=== PATIENT | male | born 1940 | race Caucasian/White ===

== ENCOUNTER → 2017-03-31 | Outpatient (CLI) | payer MEDICARE ==
[~2017-03-31] MED LIST: ASPIR 8181 MG PO; BROVANA15 MCG/2 M INH; COREG 12.5MG12.5 MG PO; DIAMOX 250 MG250 MG PO; ELIQUIS5 MG PO; FEOSOL325 MG PO; FERROUS SULFAT325 MG PO; GLUCOTROL XL 22.5 MG PO; IPRAT-ALBUT 0.5-3 ML INH; JANUVIA 100 MG100 MG PO; LASIX20 MG PO; LASIX40 MG PO; LEVAQUIN500 MG PO; NORVASC 5 MG TAB5 MG PO; PREDNISONE10 MG PO; PROTONIX40 MG PO; SOTALOL80 MG PO; ZOCOR10 MG PO
== END ==
LOC: HEART 5 10:50
DX: I65.29 Occlusion and stenosis of unspecified carotid artery (principal)

== ENCOUNTER 2017-04-19 14:37 | Emergency (ER) | payer MEDICARE ==
[~2017-04-19 14:37] MED LIST changes: -DIAMOX 250 MG250 MG PO; -FERROUS SULFAT325 MG PO; -GLUCOTROL XL 22.5 MG PO; -PREDNISONE10 MG PO; -PROTONIX40 MG PO; -SOTALOL80 MG PO
[2017-04-19 15:15] LABS: HEMOGLOBIN 8.9 gm/dl (14.0-17.5); RED BLOOD COUNT 3.13 M/UL (4.20-5.50); WHITE BLOOD COUNT 7.8 K/UL (4.5-11.0)
[2017-04-19 15:39] LABS: BUN/CREATININE RATIO 25 (0-10)
== END 2017-04-19 21:40 | disposition home or self-care (01) ==
LOC: ER1 14:37
PROVIDERS: Emergency Medicine
DX: I50.9 Heart failure, unspecified (principal); R09.02 Hypoxemia; Z79.82 Long term (current) use of aspirin; Z79.01 Long term (current) use of anticoagulants; Z79.899 Other long term (current) drug therapy
CPT/HCPCS: 36415; 71010; 80053; 82550; 82553; 83605; 83874; 83880; 84484; 85025; 85610; 85730; 87040; 93005; 96374; 96375; 99285; J1940; J2930

== ENCOUNTER 2017-04-23 08:22 | Inpatient (IN) | payer MEDICARE ==
[~2017-04-23] VITALS: Ht 177.8 cm; Wt 103.9 kg
[2017-04-23 09:04] LABS: HEMOGLOBIN 9.1 gm/dl (14.0-17.5); RED BLOOD COUNT 3.22 M/UL (4.20-5.50)
[2017-04-23] MEDS ORDERED: GLUCOTROL XL 22.5 MG PO (12:21)
[2017-04-23] MEDS ORDERED: SOTALOL80 MG PO (12:22)
[2017-04-24 03:33] LABS: HEMOGLOBIN 7.9 gm/dl (14.0-17.5)
[2017-04-24 03:40] LABS: RED BLOOD COUNT 2.82 M/UL (4.20-5.50); WHITE BLOOD COUNT 6.4 K/UL (4.5-11.0)
[2017-04-24 12:12] LABS: HEMOGLOBIN 7.7 gm/dl (14.0-17.5)
[2017-04-25 00:04] LABS: HEMOGLOBIN 7.9 gm/dl (14.0-17.5)
[2017-04-25 06:04] LABS: HEMOGLOBIN 7.9 gm/dl (14.0-17.5)
[2017-04-25 12:06] LABS: HEMOGLOBIN 8.2 gm/dl (14.0-17.5)
[2017-04-26 05:58] LABS: HEMOGLOBIN 8.3 gm/dl (14.0-17.5); RED BLOOD COUNT 2.92 M/UL (4.20-5.50); WHITE BLOOD COUNT 8.9 K/UL (4.5-11.0)
[2017-04-27 06:18] LABS: HEMOGLOBIN 8.6 gm/dl (14.0-17.5); RED BLOOD COUNT 3.02 M/UL (4.20-5.50); WHITE BLOOD COUNT 7.9 K/UL (4.5-11.0)
[2017-04-27] MEDS ORDERED: FERROUS SULFAT325 MG PO (15:58)
[2017-04-27] MEDS ORDERED: PREDNISONE10 MG PO (16:00)
[2017-04-27] MEDS ORDERED: DIAMOX 250 MG250 MG PO (16:27)
== END 2017-04-27 17:48 | disposition home or self-care (01) | DRG 291 ==
LOC: ER1 08:22 → CCU 10:28 → ZEROF 10:28 → CCU 11:50 → MED SURG 4 04-25 18:14
PROVIDERS: Emergency Medicine; Internal Medicine Pulmonary Disease; ADMIT Family Medicine
PROC: 5A09457 Assistance with Respiratory Ventilation, 24-96 Consecutive Hours, Continuous Positive Airway Pressure (ICD-10-PCS; principal; 2017-04-23)
DX: I13.0 Hypertensive heart and chronic kidney disease with heart failure and stage 1 through stage 4 chronic kidney disease, or unspecified chronic kidney disease (principal); I50.43 Acute on chronic combined systolic (congestive) and diastolic (congestive) heart failure; J96.22 Acute and chronic respiratory failure with hypercapnia; J96.21 Acute and chronic respiratory failure with hypoxia; N17.9 Acute kidney failure, unspecified; I45.2 Bifascicular block; E66.2 Morbid (severe) obesity with alveolar hypoventilation; J44.1 Chronic obstructive pulmonary disease with (acute) exacerbation; E11.22 Type 2 diabetes mellitus with diabetic chronic kidney disease; I48.0 Paroxysmal atrial fibrillation; N18.3 Chronic kidney disease, stage 3 (moderate); I25.10 Atherosclerotic heart disease of native coronary artery without angina pectoris; I70.203 Unspecified atherosclerosis of native arteries of extremities, bilateral legs; I27.2 Other secondary pulmonary hypertension; D63.1 Anemia in chronic kidney disease; D50.9 Iron deficiency anemia, unspecified; R00.0 Tachycardia, unspecified; E78.5 Hyperlipidemia, unspecified; M19.90 Unspecified osteoarthritis, unspecified site; D72.829 Elevated white blood cell count, unspecified; Z95.5 Presence of coronary angioplasty implant and graft; Z95.820 Peripheral vascular angioplasty status with implants and grafts; Z87.891 Personal history of nicotine dependence; Z85.828 Personal history of other malignant neoplasm of skin; Z85.46 Personal history of malignant neoplasm of prostate; Z92.3 Personal history of irradiation; Z87.74 Personal history of (corrected) congenital malformations of heart and circulatory system; Z68.32 Body mass index [BMI] 32.0-32.9, adult; Z99.81 Dependence on supplemental oxygen; Z79.01 Long term (current) use of anticoagulants; Z79.84 Long term (current) use of oral hypoglycemic drugs; Z79.82 Long term (current) use of aspirin; Z79.899 Other long term (current) drug therapy; Z98.890 Other specified postprocedural states; Z83.3 Family history of diabetes mellitus; Z82.49 Family history of ischemic heart disease and other diseases of the circulatory system
CPT/HCPCS: 36415; 36600; 51702; 71010; 80048; 80053; 82550; 82553; 82728; 82803; 82962; 83540; 83550; 83605; 83735; 83874; 83880; 84100; 84484; 85014; 85018; 85025; 85027; 85379; 87040; 87086; 93005; 94640; 94660; 94664; 96374; 96375; 99285; J0696; J1120; J1940; J1956; J2270; J2405; J2930; J3370; J7030; J7050; J7070

== ENCOUNTER 2017-05-12 06:55 | Inpatient (IN) | payer MEDICARE ==
[~2017-05-12] VITALS: Ht 177.8 cm; Wt 106.6 kg
[~2017-05-12 06:55] MED LIST changes: +DIAMOX 250 MG250 MG PO; +FERROUS SULFAT325 MG PO; +GLUCOTROL XL 22.5 MG PO; +PREDNISONE10 MG PO; +SOTALOL80 MG PO
[2017-05-12 07:54] LABS: HEMOGLOBIN 7.2 gm/dl (14.0-17.5); RED BLOOD COUNT 2.56 M/UL (4.20-5.50); WHITE BLOOD COUNT 8.2 K/UL (4.5-11.0)
[2017-05-13 03:17] LABS: HEMOGLOBIN 8.1 gm/dl (14.0-17.5); WHITE BLOOD COUNT 8.9 K/UL (4.5-11.0)
[2017-05-13 03:22] LABS: RED BLOOD COUNT 2.89 M/UL (4.20-5.50)
[2017-05-14 03:55] LABS: HEMOGLOBIN 7.1 gm/dl (14.0-17.5); RED BLOOD COUNT 2.58 M/UL (4.20-5.50); WHITE BLOOD COUNT 5.2 K/UL (4.5-11.0)
[2017-05-15 03:35] LABS: RED BLOOD COUNT 2.81 M/UL (4.20-5.50); WHITE BLOOD COUNT 5.4 K/UL (4.5-11.0)
[2017-05-16 03:33] LABS: HEMOGLOBIN 8.3 gm/dl (14.0-17.5); RED BLOOD COUNT 2.89 M/UL (4.20-5.50); WHITE BLOOD COUNT 4.8 K/UL (4.5-11.0)
[2017-05-16] MEDS ORDERED: PROTONIX40 MG PO (10:56)
== END 2017-05-16 11:36 | disposition home or self-care (01) | DRG 291 ==
LOC: ER1 06:55 → ZEROF 09:40 → CCU 10:55
PROVIDERS: Family Medicine; Internal Medicine Pulmonary Disease; Specialist/Technologist Athletic Trainer; ADMIT Family Medicine
PROC: 30233N1 Transfusion of Nonautologous Red Blood Cells into Peripheral Vein, Percutaneous Approach (ICD-10-PCS; principal; 2017-05-15)
DX: I13.0 Hypertensive heart and chronic kidney disease with heart failure and stage 1 through stage 4 chronic kidney disease, or unspecified chronic kidney disease (principal); I50.43 Acute on chronic combined systolic (congestive) and diastolic (congestive) heart failure; J96.21 Acute and chronic respiratory failure with hypoxia; J96.22 Acute and chronic respiratory failure with hypercapnia; K92.2 Gastrointestinal hemorrhage, unspecified; E66.2 Morbid (severe) obesity with alveolar hypoventilation; E87.4 Mixed disorder of acid-base balance; N17.9 Acute kidney failure, unspecified; J44.1 Chronic obstructive pulmonary disease with (acute) exacerbation; D62 Acute posthemorrhagic anemia; N18.3 Chronic kidney disease, stage 3 (moderate); E11.22 Type 2 diabetes mellitus with diabetic chronic kidney disease; T50.2X5A Adverse effect of carbonic-anhydrase inhibitors, benzothiadiazides and other diuretics, initial encounter; I42.9 Cardiomyopathy, unspecified; I48.0 Paroxysmal atrial fibrillation; I27.2 Other secondary pulmonary hypertension; D50.9 Iron deficiency anemia, unspecified; I73.9 Peripheral vascular disease, unspecified; E78.5 Hyperlipidemia, unspecified; Z99.81 Dependence on supplemental oxygen; I25.10 Atherosclerotic heart disease of native coronary artery without angina pectoris; I36.1 Nonrheumatic tricuspid (valve) insufficiency; Y92.009 Unspecified place in unspecified non-institutional (private) residence as the place of occurrence of the external cause; M19.90 Unspecified osteoarthritis, unspecified site; Z68.33 Body mass index [BMI] 33.0-33.9, adult; Z95.5 Presence of coronary angioplasty implant and graft; Z85.828 Personal history of other malignant neoplasm of skin; Z95.820 Peripheral vascular angioplasty status with implants and grafts; Z82.49 Family history of ischemic heart disease and other diseases of the circulatory system; Z87.891 Personal history of nicotine dependence; Z79.82 Long term (current) use of aspirin; Z79.84 Long term (current) use of oral hypoglycemic drugs; Z79.01 Long term (current) use of anticoagulants; Z79.51 Long term (current) use of inhaled steroids; Z79.899 Other long term (current) drug therapy; Z85.46 Personal history of malignant neoplasm of prostate; Z87.01 Personal history of pneumonia (recurrent); Z83.3 Family history of diabetes mellitus
CPT/HCPCS: ECHO; 36415; 36600; 51702; 71010; 80048; 80053; 81001; 82140; 82272; 82550; 82553; 82803; 82962; 83605; 83874; 83880; 84484; 85025; 85027; 85610; 85730; 86850; 86900; 86901; 86920; 87040; 93005; 93306; 94640; 94660; 94664; 97110; 97116; 99285; J1940; J7040; P9016

== ENCOUNTER → 2017-05-24 | Outpatient (CLI) | payer MEDICARE ==
[~2017-05-24] MED LIST changes: +PROTONIX40 MG PO
== END ==
LOC: RT 10:34
DX: J96.91 Respiratory failure, unspecified with hypoxia (principal)
CPT/HCPCS: 36600; 82803